=== PATIENT | female | born 1940 | race Caucasian/White ===

== ENCOUNTER → 2023-07-21 09:13 | Outpatient (REF) | payer MEDICARE, SELFPAY ==
[2023-07-21 10:16] LABS: % Basophils 0.6 % (0-2); % Eosinophils 3.2 % (0-6); % Immature Granulocytes 0.4 % (0-0.5); % Lymphocytes 26.4 % (20.5-51.1); % Neutrophils 61.4 % (42.2-75.2); Absolute Eosinophils 0.2 10^3/uL (0-0.7); Absolute Lymphocytes 1.9 10^3/uL (1.2-3.4); Absolute Monocytes 0.6 10^3/uL (0.1-0.6); Absolute Neutrophils 4.4 10^3/uL (1.4-6.5); Hematocrit 37.5 % (37.0-47.0); Hemoglobin 12.3 g/dL (12.0-16.0); Mean Corp Hgb Conc. 32.8 g/dL (33.0-37.0); Mean Corpuscular Hgb 32.1 pg (27.0-31.0); Mean Corpuscular Volume 97.9 fL (81.0-99.0); Mean Platelet Volume 10.1 fL (7.4-10.4); Nucleated Red Blood Cells % 0 %; Platelet Count 241 10^3/uL (130-400); Red Blood Cell Count 3.83 10^6/uL (4.20-5.40); Red Cell Dist. Width 12.4 % (11.5-14.5); White Blood Cell Count 7.1 10^3/uL (4.8-10.8)
[2023-07-21 10:25] LABS: Urine Albumin Trace (Neg - Trace); Urine Bilirubin 1+ (Negative); Urine Character Clear (Clear); Urine Color Yellow; Urine Glucose Negative (Negative); Urine Ketone Negative (Negative); Urine Leukocyte 2+ (Negative); Urine Nitrite Negative (Negative); Urine Occult Blood Trace (Negative); Urine Specific Gravity 1.025 (<1.030); Urine Urobilinogen Negative (Neg - 1+)
[2023-07-21 10:46] LABS: Microalbumin, Random Urine 5.5 mg/dl (0.6-1.7)
[2023-07-21 10:48] LABS: Urine Mucus Few
[2023-07-21 10:49] LABS: Urine Squamous Cell >30+ /LPF (Few)
[2023-07-21 10:50] LABS: Urine Bacteria Moderate (Negative); Urine White Cell 21-25 /HPF (0-5)
[2023-07-21 10:55] LABS: Microalbumin/creatinine Ratio 24.4 mg/g
[2023-07-21 11:06] LABS: Free T4 1.38 ng/dl (0.78-2.19)
[2023-07-21 11:20] LABS: TSH 3.55 uIU/ml (0.47-4.68)
[2023-07-21 11:55] LABS: Vitamin D, 25-OH*** 51.6 ng/mL (30-80)
[2023-07-21 12:06] LABS: ALT (SGPT) 15 U/L (0-35); AST (SGOT) 25 U/L (14-36); Albumin 3.9 g/dl (3.5-5.0); Alkaline Phosphatase 51 U/L (38-126); Blood Urea Nitrogen 30 mg/dl (7-17); Carbon Dioxide 30 mmol/L (22-30); Chloride 102 mmol/L (98-107); Glucose 132 mg/dl (70-99); HDL Cholesterol 40 mg/dl; LDL Cholesterol, Calculated 115 mg/dl; Magnesium 1.9 mg/dl (1.6-2.3); Phosphorus 3.9 mg/dl (2.5-4.5); Potassium 3.9 mmol/L (3.5-5.1); Sodium 138 mmol/L (135-145); Total Bilirubin 0.6 mg/dl (0.2-1.3); Total Cholesterol 179 mg/dl (50-199); Total Protein 6.5 g/dl (6.3-8.2); Triglyceride 121 mg/dl (10-149); Very Low Density Lipoprotein 24 mg/dl (0-30); eGFR > 60.00
[2023-07-21 12:31] LABS: Glycohemoglobin (HgbA1c) 7.1 % (4.0-5.6)
[2023-07-21 12:42] LABS: Folate 10.5 ng/ml (2.76-20); Vitamin B12 990 pg/ml (239-931)
[2023-07-23 01:36] LABS: Fructosamine 254 umol/L (205-285)
== END ==
LOC: REG 09:13
PROVIDERS: ATTENDING PHYSICIAN Internal Medicine Endocrinology, Diabetes & Metabolism; FAMILY PHYSICIAN Internal Medicine
DX: E11.65 Type 2 diabetes mellitus with hyperglycemia (principal); E78.2 Mixed hyperlipidemia; E55.9 Vitamin D deficiency, unspecified; D51.9 Vitamin B12 deficiency anemia, unspecified
CPT/HCPCS: 36415; 80053; 80061; 81003; 81015; 82043; 82306; 82570; 82607; 82746; 82985; 83036; 83735; 84100; 84436; 84439; 84443; 84550; 85025

== ENCOUNTER → 2023-10-23 07:22 | Outpatient (REF) | payer MEDICARE, SELFPAY ==
[2023-10-23 08:10] LABS: % Basophils 0.4 % (0-2); % Eosinophils 2.2 % (0-6); % Immature Granulocytes 0.1 % (0-0.5); % Lymphocytes 26.1 % (20.5-51.1); % Monocytes 8.4 % (1.7-9.3); % Neutrophils 62.8 % (42.2-75.2); Absolute Eosinophils 0.2 10^3/uL (0-0.7); Absolute Lymphocytes 1.9 10^3/uL (1.2-3.4); Absolute Monocytes 0.6 10^3/uL (0.1-0.6); Absolute Neutrophils 4.5 10^3/uL (1.4-6.5); Hemoglobin 12.1 g/dL (12.0-16.0); Mean Corp Hgb Conc. 33.6 g/dL (33.0-37.0); Mean Corpuscular Hgb 32.6 pg (27.0-31.0); Mean Platelet Volume 10.2 fL (7.4-10.4); Nucleated Red Blood Cells % 0 %; Platelet Count 197 10^3/uL (130-400); Red Blood Cell Count 3.71 10^6/uL (4.20-5.40); Red Cell Dist. Width 12.5 % (11.5-14.5); White Blood Cell Count 7.2 10^3/uL (4.8-10.8)
[2023-10-23 08:41] LABS: Urine Protein 5 mg/dl
[2023-10-23 08:51] LABS: ALT (SGPT) 11 U/L (0-35); AST (SGOT) 21 U/L (14-36); Albumin 3.9 g/dl (3.5-5.0); Alkaline Phosphatase 44 U/L (38-126); Blood Urea Nitrogen 30 mg/dl (7-17); Calcium 9.3 mg/dl (8.4-10.2); Carbon Dioxide 34 mmol/L (22-30); Chloride 101 mmol/L (98-107); Glucose 106 mg/dl (70-99); HDL Cholesterol 45 mg/dl; LDL Cholesterol, Calculated 129 mg/dl; Phosphorus 3.9 mg/dl (2.5-4.5); Potassium 4.3 mmol/L (3.5-5.1); Sodium 142 mmol/L (135-145); Total Bilirubin 0.4 mg/dl (0.2-1.3); Total Cholesterol 197 mg/dl (50-199); Total Protein 6.5 g/dl (6.3-8.2); Triglyceride 119 mg/dl (10-149); Uric Acid 5.5 mg/dl (2.5-6.2); Very Low Density Lipoprotein 23 mg/dl (0-30); eGFR > 60.00
[2023-10-23 09:07] LABS: Free T4 1.04 ng/dl (0.78-2.19); Total Thyroxine 8.04 ug/dl (5.5-11.0); Vitamin D, 25-OH*** 44.5 ng/mL (30-80)
[2023-10-23 09:18] LABS: Glycohemoglobin (HgbA1c) 6.7 % (4.0-5.6)
[2023-10-23 09:20] LABS: TSH 2.54 uIU/ml (0.47-4.68)
[2023-10-23 09:56] LABS: Folate 6.4 ng/ml (2.76-20); Vitamin B12 716 pg/ml (239-931)
[2023-10-24 22:35] LABS: Fructosamine 265 umol/L (205-285)
== END ==
LOC: REG 07:22
PROVIDERS: ATTENDING PHYSICIAN Internal Medicine Endocrinology, Diabetes & Metabolism; FAMILY PHYSICIAN Internal Medicine
DX: E11.610 Type 2 diabetes mellitus with diabetic neuropathic arthropathy (principal); E55.9 Vitamin D deficiency, unspecified; D51.9 Vitamin B12 deficiency anemia, unspecified; I10 Essential (primary) hypertension; E78.2 Mixed hyperlipidemia
CPT/HCPCS: 36415; 80053; 80061; 82306; 82570; 82607; 82746; 82985; 83036; 83735; 84100; 84156; 84436; 84439; 84443; 84550; 85025

== ENCOUNTER → 2024-02-04 09:13 | Outpatient (REF) | payer MEDICARE, SELFPAY ==
[2024-02-04 11:24] LABS: % Basophils 0.5 % (0-2); % Immature Granulocytes 0.1 % (0-0.5); % Lymphocytes 24.2 % (20.5-51.1); % Monocytes 6.5 % (1.7-9.3); % Neutrophils 65.7 % (42.2-75.2); Absolute Eosinophils 0.2 10^3/uL (0-0.7); Absolute Lymphocytes 1.8 10^3/uL (1.2-3.4); Absolute Monocytes 0.5 10^3/uL (0.1-0.6); Absolute Neutrophils 4.8 10^3/uL (1.4-6.5); Hematocrit 36.8 % (37.0-47.0); Hemoglobin 12.7 g/dL (12.0-16.0); Mean Corp Hgb Conc. 34.5 g/dL (33.0-37.0); Mean Corpuscular Hgb 33.6 pg (27.0-31.0); Mean Corpuscular Volume 97.4 fL (81.0-99.0); Mean Platelet Volume 10.2 fL (7.4-10.4); Nucleated Red Blood Cells % 0 %; Platelet Count 243 10^3/uL (130-400); Red Blood Cell Count 3.78 10^6/uL (4.20-5.40); Red Cell Dist. Width 12.8 % (11.5-14.5); White Blood Cell Count 7.3 10^3/uL (4.8-10.8)
[2024-02-04 11:41] LABS: Microalbumin, Random Urine 3.1 mg/dl (0.6-1.7); Microalbumin/creatinine Ratio 23.2 mg/g
[2024-02-04 11:50] LABS: ALT (SGPT) 14 U/L (0-35); AST (SGOT) 24 U/L (14-36); Albumin 4.1 g/dl (3.5-5.0); Alkaline Phosphatase 49 U/L (38-126); Blood Urea Nitrogen 30 mg/dl (7-17); Calcium 9.2 mg/dl (8.4-10.2); Carbon Dioxide 32 mmol/L (22-30); Chloride 100 mmol/L (98-107); Glucose 121 mg/dl (70-99); HDL Cholesterol 45 mg/dl; LDL Cholesterol, Calculated 119 mg/dl; Phosphorus 3.4 mg/dl (2.5-4.5); Sodium 143 mmol/L (135-145); Total Bilirubin 0.4 mg/dl (0.2-1.3); Total Cholesterol 187 mg/dl (50-199); Total Protein 6.7 g/dl (6.3-8.2); Triglyceride 117 mg/dl (10-149); Very Low Density Lipoprotein 23 mg/dl (0-30); eGFR > 60.00
[2024-02-04 12:00] LABS: Uric Acid 5.4 mg/dl (2.5-6.2)
[2024-02-04 12:07] LABS: Free T4 1.17 ng/dl (0.78-2.19); Total Thyroxine 8.38 ug/dl (5.5-11.0)
[2024-02-04 12:56] LABS: Folate 8.3 ng/ml (2.76-20); Vitamin B12 634 pg/ml (239-931)
[2024-02-04 14:14] LABS: Glycohemoglobin (HgbA1c) 6.4 % (4.0-5.6)
[2024-02-05 20:24] LABS: Fructosamine 273 umol/L (205-285)
== END ==
LOC: REG 09:13
PROVIDERS: ATTENDING PHYSICIAN Internal Medicine Endocrinology, Diabetes & Metabolism; FAMILY PHYSICIAN Internal Medicine
DX: E11.65 Type 2 diabetes mellitus with hyperglycemia (principal); E55.9 Vitamin D deficiency, unspecified; D51.9 Vitamin B12 deficiency anemia, unspecified; I10 Essential (primary) hypertension; E78.2 Mixed hyperlipidemia
CPT/HCPCS: 36415; 80053; 80061; 82043; 82306; 82570; 82607; 82746; 82985; 83036; 83735; 84100; 84436; 84439; 84443; 84550; 85025

== ENCOUNTER → 2024-05-13 08:50 | Outpatient (REF) | payer MEDICARE, SELFPAY ==
[2024-05-13 10:04] LABS: % Basophils 0.5 % (0-2); % Eosinophils 2.8 % (0-6); % Immature Granulocytes 0.4 % (0-0.5); % Lymphocytes 24.1 % (20.5-51.1); % Monocytes 6.6 % (1.7-9.3); % Neutrophils 65.6 % (42.2-75.2); Absolute Eosinophils 0.2 10^3/uL (0-0.7); Absolute Lymphocytes 1.8 10^3/uL (1.2-3.4); Absolute Monocytes 0.5 10^3/uL (0.1-0.6); Hematocrit 40.8 % (37.0-47.0); Hemoglobin 13.5 g/dL (12.0-16.0); Mean Corp Hgb Conc. 33.1 g/dL (33.0-37.0); Mean Corpuscular Hgb 32.5 pg (27.0-31.0); Mean Corpuscular Volume 98.1 fL (81.0-99.0); Nucleated Red Blood Cells % 0 %; Platelet Count 231 10^3/uL (130-400); Red Blood Cell Count 4.16 10^6/uL (4.20-5.40); Red Cell Dist. Width 12.6 % (11.5-14.5); White Blood Cell Count 7.6 10^3/uL (4.8-10.8)
[2024-05-13 10:22] LABS: ALT (SGPT) 14 U/L (0-35); AST (SGOT) 22 U/L (14-36); Alkaline Phosphatase 51 U/L (38-126); Blood Urea Nitrogen 24 mg/dl (7-17); Calcium 9.2 mg/dl (8.4-10.2); Carbon Dioxide 38 mmol/L (22-30); Chloride 98 mmol/L (98-107); Glucose 136 mg/dl (70-99); HDL Cholesterol 49 mg/dl; LDL Cholesterol, Calculated 123 mg/dl; Magnesium 1.9 mg/dl (1.6-2.3); Phosphorus 3.3 mg/dl (2.5-4.5); Potassium 4.4 mmol/L (3.5-5.1); Sodium 140 mmol/L (135-145); Total Bilirubin 0.6 mg/dl (0.2-1.3); Total Cholesterol 197 mg/dl (50-199); Total Protein 6.7 g/dl (6.3-8.2); Triglyceride 126 mg/dl (10-149); Uric Acid 4.5 mg/dl (2.5-6.2); Very Low Density Lipoprotein 25 mg/dl (0-30); eGFR > 60.00
[2024-05-13 10:46] LABS: Total Thyroxine 8.77 ug/dl (5.5-11.0); Vitamin D, 25-OH*** 37.6 ng/mL (30-80)
[2024-05-13 10:49] LABS: Microalbumin, Random Urine 2.8 mg/dl (0.6-1.7); Microalbumin/creatinine Ratio 24.5 mg/g
[2024-05-13 11:35] LABS: Folate 5.6 ng/ml (2.76-20); Vitamin B12 614 pg/ml (239-931)
[2024-05-13 12:14] LABS: Glycohemoglobin (HgbA1c) 6.5 % (4.0-5.6)
[2024-05-14 18:15] LABS: Fructosamine 283 umol/L (205-285)
== END ==
LOC: REG 08:50
PROVIDERS: ATTENDING PHYSICIAN Internal Medicine Endocrinology, Diabetes & Metabolism
DX: I10 Essential (primary) hypertension (principal)
CPT/HCPCS: 36415; 80053; 80061; 82043; 82306; 82570; 82607; 82746; 82985; 83036; 83735; 84100; 84436; 84443; 84550; 85025

== ENCOUNTER → 2024-09-06 07:58 | Outpatient (REF) | payer MEDICARE, SELFPAY ==
[2024-09-06 09:21] LABS: % Basophils 0.6 % (0-2); % Eosinophils 3.1 % (0-6); % Immature Granulocytes 0.3 % (0-0.5); % Lymphocytes 24.4 % (20.5-51.1); % Monocytes 7.3 % (1.7-9.3); % Neutrophils 64.3 % (42.2-75.2); Absolute Eosinophils 0.2 10^3/uL (0-0.7); Absolute Lymphocytes 1.7 10^3/uL (1.2-3.4); Absolute Monocytes 0.5 10^3/uL (0.1-0.6); Absolute Neutrophils 4.6 10^3/uL (1.4-6.5); Hemoglobin 12.5 g/dL (12.0-16.0); Mean Corp Hgb Conc. 32.9 g/dL (33.0-37.0); Mean Corpuscular Hgb 32.8 pg (27.0-31.0); Mean Corpuscular Volume 99.7 fL (81.0-99.0); Mean Platelet Volume 10.1 fL (7.4-10.4); Nucleated Red Blood Cells % 0 %; Platelet Count 236 10^3/uL (130-400); Red Blood Cell Count 3.81 10^6/uL (4.20-5.40); Red Cell Dist. Width 12.5 % (11.5-14.5); White Blood Cell Count 7.1 10^3/uL (4.8-10.8)
[2024-09-06 09:22] LABS: Urine Albumin 1+ (Neg - Trace); Urine Bilirubin Negative (Negative); Urine Character Clear (Clear); Urine Color Yellow; Urine Glucose Negative (Negative); Urine Ketone Negative (Negative); Urine Leukocyte 3+ (Negative); Urine Nitrite Negative (Negative); Urine Occult Blood 2+ (Negative); Urine Urobilinogen Negative (Neg - 1+)
[2024-09-06 09:40] LABS: Urine Squamous Cell 16-20 /LPF (Few)
[2024-09-06 09:42] LABS: Urine Bacteria Many (Negative)
[2024-09-06 09:49] LABS: ALT (SGPT) 13 U/L (0-35); AST (SGOT) 22 U/L (14-36); Albumin 4.2 g/dl (3.5-5.0); Alkaline Phosphatase 47 U/L (38-126); Blood Urea Nitrogen 29 mg/dl (7-17); Calcium 9.3 mg/dl (8.4-10.2); Carbon Dioxide 32 mmol/L (22-30); Chloride 100 mmol/L (98-107); Glucose 135 mg/dl (70-99); HDL Cholesterol 45 mg/dl; LDL Cholesterol, Calculated 139 mg/dl; Phosphorus 3.5 mg/dl (2.5-4.5); Sodium 143 mmol/L (135-145); Total Bilirubin 0.6 mg/dl (0.2-1.3); Total Cholesterol 207 mg/dl (50-199); Total Protein 6.7 g/dl (6.3-8.2); Triglyceride 117 mg/dl (10-149); Very Low Density Lipoprotein 23 mg/dl (0-30); eGFR > 60.00
[2024-09-06 10:00] LABS: Potassium 4.2 mmol/L (3.5-5.1); Uric Acid 5.5 mg/dl (2.5-6.2)
[2024-09-06 10:21] LABS: Free T4 1.24 ng/dl (0.78-2.19); Total Thyroxine 8.96 ug/dl (5.5-11.0); Vitamin D, 25-OH*** 46.6 ng/mL (30-80)
[2024-09-06 10:30] LABS: Glycohemoglobin (HgbA1c) 6.6 % (4.0-5.6)
[2024-09-06 10:34] LABS: TSH 3.64 uIU/ml (0.47-4.68)
[2024-09-06 16:05] LABS: Microalbumin, Random Urine 1.7 mg/dl (0.6-1.7); Microalbumin/creatinine Ratio 13.9 mg/g
[2024-09-07 20:40] LABS: Fructosamine 290 umol/L (205-285)
[2024-09-08 03:24] LABS: Thyroxin Binding Globulin 20.9 ug/mL (13.0-30.0)
== END ==
LOC: REG 07:58
PROVIDERS: ATTENDING PHYSICIAN Internal Medicine Endocrinology, Diabetes & Metabolism; FAMILY PHYSICIAN Internal Medicine
DX: I10 Essential (primary) hypertension (principal); E11.69 Type 2 diabetes mellitus with other specified complication; E66.9 Obesity, unspecified; E78.5 Hyperlipidemia, unspecified; E10.65 Type 1 diabetes mellitus with hyperglycemia; E78.2 Mixed hyperlipidemia
CPT/HCPCS: 36415; 80053; 80061; 81003; 81015; 82043; 82306; 82570; 82985; 83036; 83735; 84100; 84436; 84439; 84442; 84443; 84550; 85025

== ENCOUNTER → 2025-03-12 08:08 | Outpatient (REF) | payer MEDICARE, SELFPAY ==
[2025-03-12 09:31] LABS: Hematocrit 35.2 % (37.0-47.0); Hemoglobin 11.7 g/dL (12.0-16.0); Mean Corp Hgb Conc. 33.2 g/dL (33.0-37.0); Mean Corpuscular Volume 100.0 fL (81.0-99.0); Nucleated Red Blood Cells % 0 %; Platelet Count 231 10^3/uL (130-400); Red Cell Dist. Width 12.5 % (11.5-14.5)
[2025-03-12 10:07] LABS: ALT (SGPT) 13 U/L (0-35); AST (SGOT) 24 U/L (14-36); Albumin 4.1 g/dl (3.5-5.0); Alkaline Phosphatase 37 U/L (38-126); Blood Urea Nitrogen 30 mg/dl (7-17); Calcium 9.6 mg/dl (8.4-10.2); Carbon Dioxide 35 mmol/L (22-30); Chloride 100 mmol/L (98-107); Glucose 104 mg/dl (70-99); HDL Cholesterol 46 mg/dl; LDL Cholesterol, Calculated 99 mg/dl; Magnesium 2.0 mg/dl (1.6-2.3); Potassium 4.3 mmol/L (3.5-5.1); Sodium 138 mmol/L (135-145); Total Protein 6.8 g/dl (6.3-8.2); Uric Acid 5.5 mg/dl (2.5-6.2); Very Low Density Lipoprotein 26 mg/dl (0-30); eGFR > 60.00
[2025-03-12 10:19] LABS: Vitamin D, 25-OH*** 44.7 ng/mL (30-80)
[2025-03-12 10:32] LABS: TSH 2.45 uIU/ml (0.47-4.68)
[2025-03-12 10:34] LABS: Microalb - Urine Creatinine 99.600 mg/dl
[2025-03-12 10:38] LABS: Microalbumin, Random Urine 2.0 mg/dl (0.6-1.7)
[2025-03-12 11:08] LABS: Folate 9.2 ng/ml (2.76-20); Vitamin B12 694 pg/ml (239-931)
[2025-03-12 11:37] LABS: Glycohemoglobin (HgbA1c) 6.6 % (4.0-5.9)
== END ==
LOC: REG 08:08
PROVIDERS: ATTENDING PHYSICIAN Internal Medicine Endocrinology, Diabetes & Metabolism; FAMILY PHYSICIAN Internal Medicine
DX: E11.65 Type 2 diabetes mellitus with hyperglycemia (principal); E55.9 Vitamin D deficiency, unspecified; D51.9 Vitamin B12 deficiency anemia, unspecified; I10 Essential (primary) hypertension; E78.2 Mixed hyperlipidemia
CPT/HCPCS: 36415; 80053; 80061; 82043; 82306; 82570; 82607; 82746; 82985; 83036; 83735; 84100; 84436; 84439; 84443; 84550; 85025